=== PATIENT | male | born 1975 | race Caucasian/White ===

== ENCOUNTER 2017-12-19 17:25 | Emergency (ER) | payer OTHER, MEDICARE ==
[~2017-12-19] VITALS: Ht 188 cm; Wt 113.4 kg
[~2017-12-19 17:25] MED LIST: ACET325 PO; ALBU90OI61 INH; BUDE6HFA INH; CHOL10002 PO; CLOT10 PO; DABI150C PO; DEXA2 PO; DEXA4 PO; DOCU100 PO; ESCI10 PO; HYDACE5 PO; LAVAP17G PO; LEVFLO500 PO; LEVSOD100 PO; LEVSOD88 PO; NUTRISOURCE FIBE4 GM PO; OXYC10ER PO; OXYC5 PO; Oxycodone HCl20 M1 PO; Oxycontin20 MG PO; PROBIOTIC DIGE1 EACH PO; SACC250C PO; SERT25 PO; TOPI25 PO; Valcyte450 MG PO; Ventolin Soln3 ML; WARF5 PO
[2017-12-19 17:48] LABS: BASOPHILS ABSOLUTE AUTO 0.02 K/mm3 (0.00-0.23); BASOPHILS PERCENT AUTO 0 % (0-2); EOSINOPHILS ABSOLUTE AUTO 0.04 K/mm3 (0.00-0.68); EOSINOPHILS PERCENT AUTO 0 % (0-6); Hematocrit 46.8 % (37.0-53.0); Hemoglobin 15.2 g/dL (13.5-17.5); IMMATURE GRAN ABSOLUTE AUTO 0.18 K/mm3 (0.00-0.10); IMMATURE GRAN PERCENT AUTO 2 % (0-1); LYMPHOCYTES ABSOLUTE AUTO 1.51 K/mm3 (0.84-5.20); LYMPHOCYTES PERCENT AUTO 15 % (21-46); MONOCYTES ABSOLUTE AUTO 0.68 K/mm3 (0.16-1.47); MONOCYTES PERCENT AUTO 7 % (4-13); Mean Corpuscular HGB 31.5 pg (26.0-34.0); Mean Corpuscular HGB Conc 32.5 g/dL (31.5-36.5); Mean Corpuscular Volume 97 fL (80-100); Mean Platelet Volume 9.4 fL (9.1-12.4); NEUTROPHILS ABSOLUTE AUTO 7.43 K/mm3 (1.96-9.15); NEUTROPHILS PERCENT AUTO 75 % (41-73); Platelet Count 154 K/mm3 (150-400); RDW Coefficient Variation 16.5 % (11.7-14.2); RDW Standard Deviation 58.9 fL (35.1-46.3); Red Blood Cell Count 4.82 M/mm3 (4.30-5.90); White Blood Cell Count 9.86 K/mm3 (4.00-11.30)
[2017-12-19 18:10] LABS: Alanine Aminotransfer (ALT/SGP 61 U/L (12-78); Albumin, Blood 3.3 g/dL (3.4-5.0); Albumin/Globulin Ratio 0.8 (0.8-1.8); Alk Phos 48 U/L (50-136); Anion Gap 10 mmol/L (6-16); Aspartate Aminotrans (AST/SGOT 21 U/L (12-37); Bilirubin, Total 0.4 mg/dL (0.1-1.0); Blood Urea Nitrogen 26 mg/dL (8-24); Bun/Creatinine Ratio 27.4 (12.0-20.0); CO2, Blood 24 mmol/L (21-32); Calcium, Blood 8.4 mg/dL (8.5-10.1); Chloride, Blood 106 mmol/L (98-108); Creatinine, Blood 0.95 mg/dL (0.60-1.20); Globulin, Blood 3.9 g/dL (2.2-4.0); Glomerular Filtration Rate >60 (60-); Glucose, Blood 106 mg/dL (70-99); Potassium, Blood 4.2 mmol/L (3.5-5.5); Sodium, Blood 140 mmol/L (136-145); Total Protein, Blood 7.2 g/dL (6.4-8.2)
[2017-12-19] MEDS ORDERED: BISA10S PR (18:19)
[2017-12-19] MEDS ORDERED: CETI5 PO (18:20)
[2017-12-19] MEDS ORDERED: DEXA2 PO (18:21)
[2017-12-19] MEDS ORDERED: ESCI5 PO (18:21)
[2017-12-19] MEDS ORDERED: HYDMOR2 PO (18:22)
[2017-12-19] MEDS ORDERED: IBUP400 PO (18:23)
[2017-12-19] MEDS ORDERED: GAVILAX17 GM PO (18:24)
[2017-12-19] MEDS ORDERED: LEVSOD100 PO (18:24)
[2017-12-19] MEDS ORDERED: Senna-Docusate1 EACH PO (18:24)
[2017-12-19] MEDS ORDERED: TRAZ50 PO (18:25)
[2018-09-19] MEDS ORDERED: GABA100 PO (19:47)
[2018-09-19] MEDS ORDERED: MELA3 PO (19:48)
[2018-09-19] MEDS ORDERED: LEVE500 PO (19:48)
[2018-09-20] MEDS ORDERED: Keflex500 MG PO (22:03)
== END 2017-12-19 21:34 | disposition home or self-care (01) ==
LOC: ER 17:25
PROVIDERS: Emergency Medicine
DX: R06.02 Shortness of breath (principal); Z86.711 Personal history of pulmonary embolism; Z79.899 Other long term (current) drug therapy; Z85.841 Personal history of malignant neoplasm of brain
CPT/HCPCS: 36415; 71046; 71260; 80053; 85025; 85730; 96374; 96375; 99284; J1170; J2405; Q9967

== ENCOUNTER 2017-12-30 13:13 | Emergency (ER) | payer OTHER, MEDICARE ==
[~2017-12-30] VITALS: Ht 188 cm; Wt 113.4 kg
[~2017-12-30 13:13] MED LIST changes: +BISA10S PR; +CETI5 PO; +ESCI5 PO; +GAVILAX17 GM PO; +HYDMOR2 PO; +IBUP400 PO; +Senna-Docusate1 EACH PO; +TRAZ50 PO
[2017-12-30] MEDS ORDERED: OXYC1TAB11 (13:27)
[2017-12-30] MEDS ORDERED: BUDE6HFA INH (13:28)
[2017-12-30] MEDS ORDERED: Xanax2 MG PO (14:35)
[2018-09-19] MEDS ORDERED: GABA100 PO (19:47)
[2018-09-19] MEDS ORDERED: MELA3 PO (19:48)
[2018-09-19] MEDS ORDERED: LEVE500 PO (19:48)
[2018-09-20] MEDS ORDERED: Keflex500 MG PO (22:03)
== END 2017-12-30 15:01 | disposition home or self-care (01) ==
LOC: ER 13:13
DX: L76.34 Postprocedural seroma of skin and subcutaneous tissue following other procedure (principal); J45.901 Unspecified asthma with (acute) exacerbation; F41.9 Anxiety disorder, unspecified; Z86.711 Personal history of pulmonary embolism; Z79.899 Other long term (current) drug therapy
CPT/HCPCS: 94640; 99283